=== PATIENT | female | born 1985 | race Caucasian/White ===

== ENCOUNTER 2016-10-28 20:23 | Emergency (ER) | payer OTHER ==
[2016-10-28] MEDS ORDERED: KETOROLAC 60 MG/2 ML VIAL IM STA (21:31)
[2016-10-28] MEDS ORDERED: LORazepam 0.5 MG TABLET PO STA (22:07)
[2016-10-28] MEDS ORDERED: LORazepam 0.5 MG TABLET ONE (22:09)
[2016-10-28 22:32] VITALS: BP 114/80
[2016-10-28] MEDS ORDERED: METHOCARBAMOL 500 MG TABLET PO STA (23:15)
[2016-10-28] MEDS ORDERED: HYDROcod/ACETAM 5/325 MG TABLET PO STA (23:16)
--- NOTE | 2016-10-28 23:18 | ED Physician Documentation ---
PD HPI HEADACHE - Stated complaint Stated Complaint: GARCES - Chief complaint Chief Complaint: General - History obtained from History obtained from: Patient - History of Present Illness Timing - onset: How many days ago (4) Timing - details: Waxing and waning Worst headache ever?: Worst headache ever? (no) Location: Back Quality: Other ("Shooting") Associated symptoms: Vomiting. No: Fever, Nausea Worsened by: Moving Similar symptoms before: Treatment (She reports a history of migraine headaches but states that this is not a migraine. She is been on various medications for headaches in the past, and most recently was treated with Botox injection. The last time she had a similar headache was about one month ago.) - Treatment prior to arrival Treatment prior to arrival: She has taken ibuprofen, without relief. - Additional information Additional information: The patient is a 31-year-old female who presents with occipital headache that has been waxing and waning for the past 4 days. She describes it as a " shooting headache" that started after performing stretches. The pain is worse with movement of her neck. She denies associated fever, nausea or vomiting, photosensitivity, numbness or weakness. She does have a history of migraine headaches, but states this is not a migraine headache. She has taken ibuprofen without relief. The last time she had a headache of this severity was about one month ago. Review of Systems Constitutional: denies: Fever Eyes: denies: Photophobia Ears: denies: Tinnitus/ringing Nose: denies: Congestion Throat: denies: Sore throat Cardiac: denies: Chest pain / pressure Respiratory: denies: Dyspnea, Cough GI: denies: Abdominal Pain, Nausea, Vomiting : denies: Dysuria Skin: denies: Rash Musculoskeletal: reports: Neck pain. denies: Back pain Neurologic: reports: Headache. 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 - Present Medications Home Medications: Ambulatory Orders Medication Instructions Recorded Confirmed HYDROcod/ACETAM 5/325 [[place] 5/325] 1 - 2 ea PO Q6H PRN #15 tablet 06/03/16 Ondansetron HCl [Zofran] 4 mg PO Q6H PRN #10 tablet 06/03/16 Methocarbamol [Robaxin] 500 mg PO Q6H #20 tablet 10/28/16 traMADol [Ultram] 50 mg PO Q4-6H PRN #20 tablet 10/28/16 - Allergies Allergies/Adverse Reactions: Allergies Allergy/AdvReac Type Severity Reaction Status Date / Time morphine AdvReac Unknown Verified 06/03/16 19:23 Sulfa (Sulfonamide AdvReac Headache Verified 06/03/16 19:23 Antibiotics) - Living Situation Living Situation: reports: With spouse/s.o. - Social History Does the pt smoke?: No Smoking Status: Never smoker Does the pt drink ETOH?: No Does the pt have substance abuse?: No - Immunizations Immunizations are current?: No - POLST Patient has POLST: No PD ED PE NORMAL - Vitals Vital signs reviewed: Yes (initially mildly hypertensive.) - General General: Alert and oriented X 3, Well developed/nourished - HEENT HEENT: Atraumatic, PERRL, EOMI, Ears normal, Pharynx benign - Neck Neck: Supple, no meningeal sign, No bony TTP, No adenopathy, No JVD, Other ( There is tenderness to palpation along the left paracervical/trapezius musculature, with associated muscle spasm.) - Cardiac Cardiac: RRR, No murmur - Respiratory Respiratory: No respiratory distress, Clear bilaterally - Abdomen Abdomen: Soft, Non tender - Back Back: No CVA TTP, No spinal TTP - Derm Derm: No rash - Extremities Extremities: No tenderness to palpate, No edema - Neuro Neuro: Alert and oriented X 3, No motor deficit, No sensory deficit Results - Vitals Vitals: Vital Signs - 24 hr 10/28/16 22:30 Temperature 37.4 C Heart Rate 85 Respiratory 16 Rate Blood Pressure 114/80 O2 Saturation 100 Oxygen O2 Source Room air PD MEDICAL DECISION MAKING - ED course Complexity details: reviewed old records, reviewed results, re-evaluated patient , considered differential, d/w patient, d/w family ED course: The patient's headache is most consistent with muscle tension headache. I doubt migraine headache, and there is no clinical evidence to suggest meningitis , subdural hematoma, or temporal arteritis. Treatment in the emergency department included administration of ketorolac 60 mg IM. This did not change the patient's symptoms. Lorazepam 0.5 mg is administered orally and Robaxin 500 mg was administered orally. The patient continued to have discomfort although slightly improved. She is being discharged with prescriptions for Robaxin and for tramadol, 20 tablets. I discussed with her and her family members the diagnosis, symptomatic treatment and outpatient follow-up, as well as potentially worrisome signs or symptoms that should prompt reevaluation in the emergency department. Departure - Departure Disposition: 01 Home, Self Care Clinical Impression: Tension headache Condition: Stable Instructions: ED Headache Tension Follow-Up: [facility] [Provider Group] Prescriptions: Methocarbamol [Robaxin] 500 mg PO Q6H #20 tablet traMADol [Ultram] 50 mg PO Q4-6H PRN #20 tablet PRN Reason: Pain Comments: Apply icepack to your neck intermittently for the next 3 days. You can use ibuprofen, up to 800 mg 3 times daily for 10 inflammatory effect. You can use Robaxin as prescribed if needed for muscle spasms. You can use Percocet as prescribed if needed for pain. Follow up with your primary physician within one to 2 weeks. Call to schedule an appointment. Return to the emergency department if you develop increasing, neck pain and increasing headache, or otherwise worsening symptoms. Discharge Date/Time: 10/28/16 23:54
[2016-10-28] MEDS ORDERED: HYDROcod/ACET 5/325 Prepack 6 PO ONE (23:32)
[2016-10-28] MEDS ORDERED: METHOCARBAMOL 500 MG TABLET PO ONE (23:32)
[2016-10-28] MEDS ORDERED: HYDROcod/ACET 5/325 Prepack 6 PO STA (23:36)
== END 2016-10-28 23:54 | disposition home or self-care (01) ==
LOC: ED 20:23
DX: G44.209 Tension-type headache, unspecified, not intractable (principal)
CPT/HCPCS: 96372; 99283; A9270

== ENCOUNTER 2016-10-31 18:58 | Emergency (ER) | payer OTHER ==
[2016-10-31] MEDS ORDERED: HYDROcod/ACETAM 5/325 MG TABLET PO STA (20:23)
[2016-10-31] MEDS ORDERED: HYDROcod/ACETAM 5/325 MG TABLET ONE (20:26)
== END 2016-10-31 20:36 | disposition home or self-care (01) ==
DX: M62.838 Other muscle spasm (principal)
CPT/HCPCS: 99283; A9270

== ENCOUNTER 2017-06-07 11:49 | Emergency (ER) | payer OTHER ==
[2017-06-07] MEDS ORDERED: SODIUM CHLORIDE 0.9% 2,000 ML IV ONE (13:01)
--- NOTE | 2017-06-07 13:07 | ED Physician Documentation ---
History of Present Illness - Stated complaint Stated Complaint: SOA - Chief complaint Chief Complaint: Resp - History obtained from History obtained from: Patient - History of Present Illness Timing: How many days ago (6) - Additonal information Additional information: The patient is a 32-year-old female who presents with generalized weakness and shortness of breath that has been progressing over the past 6 days. She gets diaphoretic when standing. She has had diarrhea and reports nausea with dry heaves. She denies abdominal pain, fever, cough, or dysuria. She was seen by her primary physician 2 days ago, and it was thought that her symptoms were anxiety related. The patient reports significant stress, having left her 6 days ago, prior to the onset of her symptoms. She denies history of similar symptoms in the past. Review of Systems Constitutional: reports: Fatigue, Sweats. denies: Fever Ears: denies: Tinnitus/ringing Nose: denies: Congestion Throat: denies: Sore throat Cardiac: reports: Palpitations. denies: Chest pain / pressure Respiratory: reports: Dyspnea. denies: Cough GI: reports: Nausea. denies: Abdominal Pain, Vomiting : reports: LMP (3 weeks ago.). denies: Dysuria Skin: denies: Rash Musculoskeletal: denies: Back pain, Extremity pain Neurologic: reports: Generalized weakness. 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 - Present Medications Home Medications: Ambulatory Orders Medication Instructions Recorded Confirmed Potassium Chloride [K-Dur] 20 meq PO 0800 #10 tablet 06/07/17 Promethazine [Phenergan] 25 - 50 mg PO Q6H PRN #10 tab 06/07/17 - Allergies Allergies/Adverse Reactions: Allergies Allergy/AdvReac Type Severity Reaction Status Date / Time ciprofloxacin [From Cipro] AdvReac Headache Verified 06/07/17 12:14 morphine AdvReac Unknown Verified 06/07/17 12:14 Sulfa (Sulfonamide AdvReac Headache Verified 06/07/17 12:14 Antibiotics) - Social History Does the pt smoke?: No Smoking Status: Never smoker Does the pt drink ETOH?: No Does the pt have substance abuse?: No - Immunizations Immunizations are current?: No - POLST Patient has POLST: No PD ED PE NORMAL - Vitals Vital signs reviewed: Yes (tachycardic) - General General: Alert and oriented X 3, Well developed/nourished - HEENT HEENT: Atraumatic, EOMI, Moist mucous membranes, Pharynx benign - Neck Neck: Supple, no meningeal sign, No JVD - Cardiac Cardiac: No murmur, Other (rapid rate, regular rhyt) - Respiratory Respiratory: No respiratory distress, Clear bilaterally - Abdomen Abdomen: Soft, Non tender, No organomegaly - Back Back: No CVA TTP - Derm Derm: No rash - Extremities Extremities: No edema, No calf tenderness / cord - Neuro Neuro: Alert and oriented X 3, No motor deficit, No sensory deficit Results - Vitals Vitals: Oxygen O2 Source Room air - EKG (time done) 11:57 Rate: Rate (enter#) (122) Rhythm: Sinus tachycardia [place]: Normal Intervals: Normal VT QRS: Normal Ischemia: Normal ST segments Computer interpretation: Agree with computer - Labs Labs: Laboratory Tests 06/07/17 06/07/17 06/07/17 13:11 13:21 13:21 WBC 7.6 RBC 5.38 Hgb 13.9 Hct 42.0 MCV 78.2 L MCH 25.8 L MCHC 33.0 RDW 16.6 H Plt Count 236 MPV 9.4 Neut # 5.2 Lymph # 1.3 L [place] # 0.8 Eos # 0.1 Baso # 0.2 H Absolute Nucleated RBC 0.00 Nucleated RBC % 0.0 Manual Slide Review Indicated WBC Morphology NORMAL APPEARANCE Platelet Estimate NORMAL (130-450,000) Platelet Morphology 2+ LARGE PLATELETS RBC Morph Micro Appear 1+ POIKILOCYTOSIS Sodium 134 L Potassium 2.9 L Chloride 103 Carbon Dioxide 18 L Anion Gap 13.0 BUN < 5 L Creatinine 0.7 Estimated GFR (MDRD) 97 Glucose 96 Calcium 9.8 Total Bilirubin 1.4 H AST 33 ALT 19 Alkaline Phosphatase 48 Total Protein 8.8 H Albumin 5.4 Globulin 3.4 Albumin/Globulin Ratio 1.6 Lipase 27 TSH Urine Color YELLOW Urine Clarity CLEAR Urine pH 6.0 Ur Specific [place] <=1.005 Urine Protein NEGATIVE Urine Glucose (UA) NEGATIVE Urine Ketones 15 H Urine Occult Blood TRACE-LYSE Urine Nitrite NEGATIVE Urine Bilirubin NEGATIVE Urine Urobilinogen 0.2 (NORMAL) Ur Leukocyte Esterase NEGATIVE Ur Microscopic Review NOT INDICATED Urine Culture Comments NOT INDICATED Urine HCG, Qual NEGATIVE 06/07/17 13:21 WBC RBC Hgb Hct MCV MCH MCHC RDW Plt Count MPV Neut # Lymph # [place] # Eos # Baso # Absolute Nucleated RBC Nucleated RBC % Manual Slide Review WBC Morphology Platelet Estimate Platelet Morphology RBC Morph Micro Appear Sodium Potassium Chloride Carbon Dioxide Anion Gap BUN Creatinine Estimated GFR (MDRD) Glucose Calcium Total Bilirubin AST ALT Alkaline Phosphatase Total Protein Albumin Globulin Albumin/Globulin Ratio Lipase TSH 1.28 Urine Color Urine Clarity Urine pH Ur Specific [place] Urine Protein Urine Glucose (UA) Urine Ketones Urine Occult Blood Urine Nitrite Urine Bilirubin Urine Urobilinogen Ur Leukocyte Esterase Ur Microscopic Review Urine Culture Comments Urine HCG, Qual PD MEDICAL DECISION MAKING - ED course Complexity details: reviewed results, re-evaluated patient, considered differential, d/w patient ED course: The patient's presentation is significant for abdominal distress with vomiting and dehydration. Chemistry panel also reveals mild hypokalemia, with a potassium of 2.9. I believe her symptoms are indeed stress related. Repeated examinations reveal a benign abdomen. CBC is unremarkable, as is urinalysis. TSH was checked and was normal. Treatment in the emergency department included administration of normal saline 1 L IV, Phenergan 12.5 mg IV, potassium 10 mEq IV, and 25 mEq orally. Following the above treatment the patient felt subjectively much improved, and demonstrates ability to drink fluids without recurrent vomiting. She is being discharged with prescriptions for Phenergan and for short course of supplemental potassium. I discussed with her the results of her workup, symptomatic treatment and outpatient follow-up, as well as potentially worrisome signs or symptoms that should prompt reevaluation in the emergency department. Departure - Departure Disposition: 01 Home, Self Care Clinical Impression: Dehydration, Hypokalemia Diarrhea Qualifiers: Diarrhea type: unspecified type Qualified Code(s): R19.7 - Diarrhea, unspecified Condition: Stable Instructions: ED Dehydration, ED Diarrhea Viral Follow-Up: [facility] [Provider Group] Prescriptions: Potassium Chloride [K-Dur] 20 meq PO 0800 #10 tablet Promethazine [Phenergan] 25 - 50 mg PO Q6H PRN #10 tab PRN Reason: Nausea / Vomiting Comments: Drink plenty of fluids. You can use Phenergan as prescribed if needed for nausea. Take potassium supplement daily as prescribed. Follow up with your primary physician within one week. Call to schedule an appointment. Return to the emergency department if you develop increasing abdominal pain, persistent vomiting, recurrent dehydration, or otherwise worsening symptoms. Discharge Date/Time: 06/07/17 16:10
[2017-06-07 13:34] LABS: BASOPHILS # (AUTO) 0.2 10^3/uL (0.0-0.1); BASOPHILS % (AUTO) 2.7 %; EOSINOPHILS # (AUTO) 0.1 10^3/uL (0.0-0.7); EOSINOPHILS % (AUTO) 1.9 %; HGB - HEMOGLOBIN 13.9 g/dL (12.0-16.0); LYMPHOCYTES # (AUTO) 1.3 10^3/uL (1.5-3.5); LYMPHOCYTES % (AUTO) 16.9 %; MEAN CORPUSCULAR HEMOGLOBIN 25.8 pg (27.0-31.0); MEAN CORPUSCULAR VOLUME 78.2 fL (81.0-99.0); MEAN PLATELET VOLUME 9.4 fL (7.9-10.8); MONOCYTES # (AUTO) 0.8 10^3/uL (0.0-1.0); MONOCYTES % (AUTO) 10.9 %; NEUTROPHILS # (AUTO) 5.2 10^3/uL (1.5-6.6); NEUTROPHILS % (AUTO) 67.6 %; RED BLOOD COUNT 5.38 10^6/uL (4.20-5.40); RED CELL DISTRIBUTION WIDTH 16.6 % (12.0-15.0); UNCORRECTED WHITE BLOOD COUNT 7.6 x10^3/uL; WHITE BLOOD COUNT 7.6 x10^3/uL (4.8-10.8)
[2017-06-07 13:51] LABS: ALBUMIN/GLOBULIN RATIO 1.6 (1.0-2.2); BILIRUBIN,TOTAL 1.4 mg/dL (0.2-1.0); BUN - BLOOD UREA NITROGEN < 5 mg/dL (6-20); CALCIUM 9.8 mg/dL (8.5-10.3); CARBON DIOXIDE - CO2 18 mmol/L (21-32); CHLORIDE 103 mmol/L (101-111); CREATININE 0.7 mg/dL (0.4-1.0); GFR - MDRD 97 (>89); GLUCOSE 96 mg/dL (70-100); LIPASE 27 U/L (22-51); POTASSIUM 2.9 mmol/L (3.5-5.0); SODIUM 134 mmol/L (135-145); TOTAL PROTEIN 8.8 g/dL (6.7-8.2)
[2017-06-07 14:05] LABS: BILIRUBIN,URINE NEGATIVE (NEGATIVE)
[2017-06-07] MEDS ORDERED: POTASSIUM CHLOR 10 MEQ/100 ML 10 MEQ/100 ML BAG IV ONE ×2 (14:07→14:27)
[2017-06-07] MEDS ORDERED: POTASSIUM BICARB 25 MEQ TABLET PO STA (14:08)
[2017-06-07 14:09] LABS: HCG UR QUAL NEGATIVE; UA CHARGE (STRIP ONLY) YES; UR CULTURE IF IND NOT INDICATED
[2017-06-07] MEDS ORDERED: POTASSIUM BICARB 25 MEQ TABLET PO ONE (14:27)
[2017-06-07 14:31] LABS: PLATELET ESTIMATE, MANUAL NORMAL (130-450,000) (NORMAL); PLATELET MORPHOLOGY 2+ LARGE PLATELETS (NORMAL)
[2017-06-07 14:33] LABS: WBC MORPHOLOGY (MULTIPLE) NORMAL APPEARANCE (NORMAL)
[2017-06-07 15:18] VITALS: BP 107/74
== END 2017-06-07 16:10 | disposition home or self-care (01) ==
LOC: ED 11:49
DX: E86.0 Dehydration (principal); E87.6 Hypokalemia; R19.7 Diarrhea, unspecified; I48.92 Unspecified atrial flutter; R94.31 Abnormal electrocardiogram [ECG] [EKG]
CPT/HCPCS: 36415; 80053; 81003; 81025; 83690; 84443; 85025; 93005; 96361; 96365; 99283; 99284; A9270; 81001; 87086

== ENCOUNTER 2017-06-11 08:38 | Emergency (ER) | payer OTHER ==
[2017-06-11] MEDS ORDERED: SODIUM CHLORIDE 0.9% 1,000 ML IV ONE (10:30)
--- NOTE | 2017-06-11 10:35 | ED Physician Documentation ---
History of Present Illness - Stated complaint Stated Complaint: RAPID HEART BEAT - Chief complaint Chief Complaint: Cardiac - History obtained from History obtained from: Patient - History of Present Illness Timing: How many weeks ago (3) - Additonal information Additional information: 32-year-old female who is going through divorce with her of 13 years has developed increased diarrhea and symptoms of dehydration and weakness. She was seen in the emergency department last week and hydrated and given potassium. She has a history of irritable bowel syndrome and frequently has diarrhea. She states that she has both liquid and solid stool. Review of Systems Constitutional: reports: Sweats. denies: Fever, Chills Eyes: denies: Decreased vision Ears: denies: Ear pain Nose: denies: Congestion Throat: denies: Oral lesions / sores, Sore throat Cardiac: denies: Chest pain / pressure, Palpitations Respiratory: denies: Dyspnea, Cough GI: reports: Diarrhea. denies: Abdominal Pain, Nausea, Vomiting : denies: Dysuria, Frequency Skin: denies: Rash Musculoskeletal: denies: Neck pain, Back pain, Extremity pain Neurologic: reports: Generalized weakness. 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 - Present Medications Home Medications: Ambulatory Orders Medication Instructions Recorded Confirmed Potassium Chloride [K-Dur] 20 meq PO 0800 #10 tablet 06/07/17 06/11/17 - Allergies Allergies/Adverse Reactions: Allergies Allergy/AdvReac Type Severity Reaction Status Date / Time ciprofloxacin [From Cipro] AdvReac Headache Verified 06/11/17 09:12 morphine AdvReac Unknown Verified 06/11/17 09:12 Sulfa (Sulfonamide AdvReac Headache Verified 06/11/17 09:12 Antibiotics) - Social History Does the pt smoke?: No Smoking Status: Never smoker Does the pt drink ETOH?: No Does the pt have substance abuse?: No - Immunizations Immunizations are current?: No - POLST Patient has POLST: No PD ED PE NORMAL - Vitals Vital signs reviewed: Yes - General General: Alert and oriented X 3, Well developed/nourished, Other (The patient is in tears and has a flattened affect.) - HEENT HEENT: Atraumatic, PERRL, EOMI, Ears normal, Moist mucous membranes, Pharynx benign, Dentition benign - Neck Neck: Supple, no meningeal sign, No bony TTP, No JVD - Cardiac Cardiac: No murmur, Other (Tachycardia to 110) - Respiratory Respiratory: No respiratory distress, Clear bilaterally - Abdomen Abdomen: Soft, Non tender - Back Back: No CVA TTP, No spinal TTP - Derm Derm: Normal color, Warm and dry, No rash - Extremities Extremities: No deformity, No edema - Neuro Neuro: No motor deficit, No sensory deficit - Psych Psych: Normal mood, Normal affect Results - Vitals Vitals: Vital Signs - 24 hr 06/11/17 06/11/17 06/11/17 09:04 10:54 12:21 Heart Rate 87 75 78 Respiratory 11 L 14 16 Rate Blood Pressure 120/77 121/72 O2 Saturation 100 100 100 Oxygen O2 Source Room air - EKG (time done) 0846 Rate: Rate (enter#) (101) Rhythm: Sinus tachycardia Compare to prior EKG: Changed from prior EKG ([facility] 06-07-17 rate has decreased) Computer interpretation: Agree with computer - Labs Labs: Laboratory Tests 06/11/17 06/11/17 06/11/17 10:50 10:50 10:55 WBC 6.0 RBC 4.61 Hgb 11.9 L Hct 36.4 L MCV 78.9 L MCH 25.7 L MCHC 32.6 RDW 17.1 H Plt Count 195 MPV 8.7 Neut # 4.2 Lymph # 1.1 L [place] # 0.4 Eos # 0.1 Baso # 0.1 Absolute Nucleated RBC 0.00 Nucleated RBC % 0.0 Manual Slide Review Indicated Platelet Estimate NORMAL (130-450,000) Platelet Morphology 1+ LARGE PLATELETS RBC Morph Micro Appear NORMAL APPEARANCE Sodium 137 Potassium 3.0 L Chloride 103 Carbon Dioxide 21 Anion Gap 13.0 BUN < 5 L Creatinine 0.6 Estimated GFR (MDRD) 116 Glucose 78 Calcium 9.2 Total Bilirubin 1.1 H AST 25 ALT 18 Alkaline Phosphatase 42 Total Protein 7.6 Albumin 4.8 Globulin 2.8 Albumin/Globulin Ratio 1.7 Lipase 22 Urine Color YELLOW Urine Clarity CLEAR Urine pH 6.0 Ur Specific [place] 1.010 Urine Protein NEGATIVE Urine Glucose (UA) NEGATIVE Urine Ketones >=80 H Urine Occult Blood NEGATIVE Urine Nitrite NEGATIVE Urine Bilirubin NEGATIVE Urine Urobilinogen 0.2 (NORMAL) Ur Leukocyte Esterase NEGATIVE Ur Microscopic Review NOT INDICATED Urine Culture Comments NOT INDICATED Urine HCG, Qual NEGATIVE Procedures - IVC sono (time) 1030 Bedside IVC sono: IVC measures (cm) (0.88), IVC collapsed c insp (cm) (complete) , Dehydration PD MEDICAL DECISION MAKING - ED course Complexity details: reviewed old records, reviewed results, re-evaluated patient , considered differential, d/w patient ED course: 32-year-old female with marked stress and anxiety has again developed dehydration and weakness and is found to have hypokalemia. Here in the emergency department she is administered IV saline and potassium. She does have significant stress and has an appointment to see a counselor tomorrow. I recommended she use some Imodium for her diarrhea. Departure - Departure Disposition: Home, Self Care Clinical Impression: Dehydration, Hypokalemia, Stress reaction Condition: Stable Instructions: ED Stress React, ED Dehydration, Potassium Supplements Follow-Up: [facility] [Provider Group] Comments: Today your again dehydrated to have low potassium. There is also ketones in the urine suggesting you are not eating. Follow-up with the counselor as planned tomorrow. Hydrate well today and take your potassium supplement. I recommend Imodium for your chronic diarrhea. Discharge Date/Time: 06/11/17 12:25
[2017-06-11 11:02] LABS: BILIRUBIN,URINE NEGATIVE (NEGATIVE)
[2017-06-11 11:03] LABS: BASOPHILS # (AUTO) 0.1 10^3/uL (0.0-0.1); BASOPHILS % (AUTO) 1.4 %; EOSINOPHILS # (AUTO) 0.1 10^3/uL (0.0-0.7); EOSINOPHILS % (AUTO) 2.3 %; HCT - HEMATOCRIT 36.4 % (37.0-47.0); HGB - HEMOGLOBIN 11.9 g/dL (12.0-16.0); LYMPHOCYTES # (AUTO) 1.1 10^3/uL (1.5-3.5); LYMPHOCYTES % (AUTO) 18.8 %; MEAN CORPUSCULAR HEMOGLOBIN 25.7 pg (27.0-31.0); MEAN CORPUSCULAR HGB CONC 32.6 g/dL (32.0-36.0); MEAN CORPUSCULAR VOLUME 78.9 fL (81.0-99.0); MEAN PLATELET VOLUME 8.7 fL (7.9-10.8); MONOCYTES # (AUTO) 0.4 10^3/uL (0.0-1.0); MONOCYTES % (AUTO) 7.3 %; NEUTROPHILS # (AUTO) 4.2 10^3/uL (1.5-6.6); NEUTROPHILS % (AUTO) 70.2 %; RED BLOOD COUNT 4.61 10^6/uL (4.20-5.40); RED CELL DISTRIBUTION WIDTH 17.1 % (12.0-15.0)
[2017-06-11 11:07] LABS: HCG UR QUAL NEGATIVE; UA CHARGE (STRIP ONLY) YES; UR CULTURE IF IND NOT INDICATED
[2017-06-11 11:14] LABS: ALBUMIN/GLOBULIN RATIO 1.7 (1.0-2.2); BILIRUBIN,TOTAL 1.1 mg/dL (0.2-1.0); BUN - BLOOD UREA NITROGEN < 5 mg/dL (6-20); CALCIUM 9.2 mg/dL (8.5-10.3); CARBON DIOXIDE - CO2 21 mmol/L (21-32); CHLORIDE 103 mmol/L (101-111); CREATININE 0.6 mg/dL (0.4-1.0); GFR - MDRD 116 (>89); GLUCOSE 78 mg/dL (70-100); LIPASE 22 U/L (22-51); SODIUM 137 mmol/L (135-145); TOTAL PROTEIN 7.6 g/dL (6.7-8.2)
[2017-06-11 11:25] LABS: PLATELET ESTIMATE, MANUAL NORMAL (130-450,000) (NORMAL)
[2017-06-11] MEDS ORDERED: POTASSIUM BICARB 25 MEQ TABLET PO STA (11:31)
[2017-06-11] MEDS ORDERED: POTASSIUM BICARB 25 MEQ TABLET PO ONE (11:39)
[2017-06-11 12:22] VITALS: BP 121/72
== END 2017-06-11 12:25 | disposition home or self-care (01) ==
LOC: ED 08:38
DX: E86.0 Dehydration (principal); E87.6 Hypokalemia; F43.9 Reaction to severe stress, unspecified; R00.0 Tachycardia, unspecified
CPT/HCPCS: 36415; 80053; 81003; 81025; 83690; 85025; 96360; 99283; 99284; A9270; 81001; 87086

== ENCOUNTER 2017-06-26 11:29 | Outpatient (CLI) | payer OTHER | END 2017-06-26 11:30 | disposition critical access hospital (66) | LOC: EMS 11:29 | PROVIDERS: ATTEND Surgery | DX: T58.2X2A Toxic effect of carbon monoxide from incomplete combustion of other domestic fuels, intentional self-harm, initial encounter (principal) | CPT/HCPCS: A0425; A0427 ==

== ENCOUNTER 2017-06-26 11:47 | Emergency (ER) | payer OTHER ==
[2017-06-26 12:10] LABS: BASOPHILS # (AUTO) 0.1 10^3/uL (0.0-0.1); BASOPHILS % (AUTO) 2.5 %; EOSINOPHILS # (AUTO) 0.1 10^3/uL (0.0-0.7); EOSINOPHILS % (AUTO) 1.9 %; HCT - HEMATOCRIT 38.7 % (37.0-47.0); HGB - HEMOGLOBIN 12.7 g/dL (12.0-16.0); LYMPHOCYTES # (AUTO) 1.3 10^3/uL (1.5-3.5); LYMPHOCYTES % (AUTO) 26.2 %; MEAN CORPUSCULAR HGB CONC 32.8 g/dL (32.0-36.0); MEAN CORPUSCULAR VOLUME 79.5 fL (81.0-99.0); METHEMOGLOBIN VENOUS 0.3 % (0-1.5); MONOCYTES # (AUTO) 0.4 10^3/uL (0.0-1.0); MONOCYTES % (AUTO) 8.2 %; NEUTROPHILS # (AUTO) 3.1 10^3/uL (1.5-6.6); NEUTROPHILS % (AUTO) 61.2 %; NUCLEATED RED BLOOD CELLS AUTO 0.1 /100WBC; RED BLOOD COUNT 4.87 10^6/uL (4.20-5.40); RED CELL DISTRIBUTION WIDTH 17.8 % (12.0-15.0)
[2017-06-26 12:22] LABS: BILIRUBIN,URINE NEGATIVE (NEGATIVE); PH,URINE 6.5 PH (5.0-7.5)
[2017-06-26 12:23] LABS: UA CHARGE (STRIP ONLY) YES; UR CULTURE IF IND NOT INDICATED
[2017-06-26 12:23] LABS: ALBUMIN/GLOBULIN RATIO 1.7 (1.0-2.2); BILIRUBIN,TOTAL 0.7 mg/dL (0.2-1.0); BUN - BLOOD UREA NITROGEN 6 mg/dL (6-20); CALCIUM 9.9 mg/dL (8.5-10.3); CARBON DIOXIDE - CO2 19 mmol/L (21-32); CHLORIDE 103 mmol/L (101-111); CREATININE 0.7 mg/dL (0.4-1.0); GFR - MDRD 97 (>89); GLUCOSE 101 mg/dL (70-100); LIPASE 30 U/L (22-51); POTASSIUM 3.6 mmol/L (3.5-5.0); SALICYLATE < 6.0 mg/dL; SODIUM 139 mmol/L (135-145); TOTAL PROTEIN 7.8 g/dL (6.7-8.2)
[2017-06-26 12:26] LABS: ACETAMINOPHEN < 10 ug/mL (10-30)
[2017-06-26 12:39] LABS: PLATELET MORPHOLOGY 1+ GIANT PLATELETS (NORMAL)
[2017-06-26 12:40] LABS: PLATELET ESTIMATE, MANUAL NORMAL (130-450,000) (NORMAL); WBC MORPHOLOGY (MULTIPLE) 1+ VARIANT LYMPHS (NORMAL)
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
[2017-06-26 14:01] LABS: METHEMOGLOBIN VENOUS 0.1 % (0-1.5)
[2017-06-26] MEDS ORDERED: HYDROcod/ACETAM 5/325 MG TABLET ONE (19:03)
[2017-06-26] MEDS ORDERED: IBUPROFEN 400 MG TABLET PO STA (21:29)
[2017-06-26] MEDS ORDERED: IBUPROFEN 400 MG TABLET PO ONE (21:38)
--- NOTE | 2017-06-27 01:06 | ED Physician Documentation ---
ED Addendum - Addendum Addendum: 06/27/17 01:05 Patient placed on Invol hold by [facility]. Rika DOTYP accepts in transfer. Patient cooperative during my shift.
[2017-06-27 03:41] VITALS: BP 132/88
== END 2017-06-27 03:49 ==
LOC: EDUNIT# → ED 11:47
DX: T59.7X2A Toxic effect of carbon dioxide, intentional self-harm, initial encounter (principal); Y92.019 Unspecified place in single-family (private) house as the place of occurrence of the external cause
CPT/HCPCS: 36415; 80053; 80306; 80307; 80320; 80329; 81003; 82375; 83690; 84443; 84703; 85025; 93005; 99284; 99285; A9270; 81001; 87086

== ENCOUNTER 2017-11-30 18:49 | Emergency (ER) | payer OTHER ==
--- NOTE | 2017-11-30 20:12 | ED Physician Documentation ---
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 - Present Medications Home Medications: Ambulatory Orders Medication Instructions Recorded Confirmed Ibuprofen [Motrin] 800 mg PO TID 06/17/17 06/26/17 - Allergies Allergies/Adverse Reactions: Allergies Allergy/AdvReac Type Severity Reaction Status Date / Time ciprofloxacin [From Cipro] AdvReac Headache Verified 11/30/17 18:58 morphine AdvReac Unknown Verified 11/30/17 18:58 Sulfa (Sulfonamide AdvReac Headache Verified 11/30/17 18:58 Antibiotics) - Social History Does the pt smoke?: No Smoking Status: Never smoker Does the pt drink ETOH?: No Does the pt have substance abuse?: No - Immunizations Immunizations are current?: No - POLST Patient has POLST: No Results - Vitals Vitals: Vital Signs - 24 hr 11/30/17 18:55 Temperature 37.6 C H Heart Rate 104 H Respiratory 16 Rate Blood Pressure 134/93 H O2 Saturation 100 Oxygen O2 Source Room air
--- NOTE | 2017-11-30 20:15 | ED Physician Documentation ---
PD HPI ABD PAIN - Stated complaint Stated Complaint: BACK PX - Chief complaint Chief Complaint: Abd Pain - History obtained from History obtained from: Patient - History of Present Illness Timing - onset: How many hours ago (2) Timing - duration: Hours Timing - details: Abrupt onset, Constant, Waxing and waning Pain level now: 8 Quality: Cramping, Pain Location: Other (across lower abdomen and to rectum) Improved by: Other (no ameliorating factors) Worsened by: Moving, Palpation Associated symptoms: Nausea. No: Fever, Vomiting, Diarrhea, Constipation Similar symptoms before: Diagnosis (similar to episodes she last had approximately 2 years ago, diagnosed with IBS/"spastic colon" (per patient); w/ u at that time included blood tests and lower endoscopy/colonoscopy) Recently seen: Not recently seen Review of Systems Constitutional: denies: Fever, Chills, Sweats Cardiac: reports: Reviewed and negative Respiratory: reports: Reviewed and negative GI: reports: Abdominal Pain, Nausea. 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 - Present Medications Home Medications: Ambulatory Orders Medication Instructions Recorded Confirmed Ibuprofen [Motrin] 800 mg PO TID 06/17/17 06/26/17 HYDROcod/ACETAM 5/325 [[place] 5/325] 1 - 2 ea PO Q6H PRN #15 tablet 11/30/17 - Allergies Allergies/Adverse Reactions: Allergies Allergy/AdvReac Type Severity Reaction Status Date / Time ciprofloxacin [From Cipro] AdvReac Headache Verified 11/30/17 18:58 morphine AdvReac Unknown Verified 11/30/17 18:58 Sulfa (Sulfonamide AdvReac Headache Verified 11/30/17 18:58 Antibiotics) - Social History Does the pt smoke?: No Smoking Status: Never smoker Does the pt drink ETOH?: No Does the pt have substance abuse?: No - Immunizations Immunizations are current?: No - POLST Patient has POLST: No PD ED PE NORMAL - Vitals Vital signs reviewed: Yes - General General: Alert and oriented X 3, Well developed/nourished, Other (appears uncomfortable) - HEENT HEENT: Moist mucous membranes - Cardiac Cardiac: RRR, No murmur - Respiratory Respiratory: No respiratory distress, Clear bilaterally - Abdomen Abdomen: Normal bowel sounds, Soft, Non distended - Back Back: No CVA TTP - Derm Derm: Normal color, Warm and dry PD ED PE EXPANDED - Abdomen Abdomen: Tender to palpation, Periumbilical, RLQ. No: Rebound, Guarding Results - Vitals Vitals: Vital Signs - 24 hr 11/30/17 11/30/17 11/30/17 18:55 22:41 23:37 Temperature 37.6 C H 36.8 C 36.4 C L Heart Rate 104 H 71 86 Respiratory 16 16 16 Rate Blood Pressure 134/93 H 115/78 129/84 H O2 Saturation 100 98 100 Oxygen O2 Source Room air - Labs Labs: Laboratory Tests 11/30/17 11/30/17 11/30/17 20:00 20:00 21:02 WBC 10.3 RBC 4.42 Hgb 11.2 L Hct 34.6 L MCV 78.3 L MCH 25.4 L MCHC 32.5 RDW 17.0 H Plt Count 213 MPV 8.6 Neut # 7.4 H Lymph # 1.8 Bland # 0.9 Eos # 0.1 Baso # 0.1 Absolute Nucleated RBC 0.01 Nucleated RBC % 0.1 Sodium Potassium Chloride Carbon Dioxide Anion Gap BUN Creatinine Estimated GFR (MDRD) Glucose Calcium Total Bilirubin AST ALT Alkaline Phosphatase Total Protein Albumin Globulin Albumin/Globulin Ratio Lipase Urine Color STRAW Urine Clarity CLEAR Urine pH 5.5 Ur Specific [place] <=1.005 <=1.005 Urine Protein NEGATIVE Urine Glucose (UA) NEGATIVE Urine Ketones NEGATIVE Urine Occult Blood NEGATIVE Urine Nitrite NEGATIVE Urine Bilirubin NEGATIVE Urine Urobilinogen 0.2 (NORMAL) Ur Leukocyte Esterase NEGATIVE Ur Microscopic Review NOT INDICATED Urine Culture Comments NOT INDICATED Urine HCG, Qual NEGATIVE 11/30/17 21:02 WBC RBC Hgb Hct MCV MCH MCHC RDW Plt Count MPV Neut # Lymph # B[place] # Eos # Baso # Absolute Nucleated RBC Nucleated RBC % Sodium 138 Potassium 3.7 Chloride 106 Carbon Dioxide 25 Anion Gap 7.0 BUN 6 Creatinine 0.4 Estimated GFR (MDRD) 185 Glucose 93 Calcium 9.0 Total Bilirubin 0.4 AST 20 ALT 15 Alkaline Phosphatase 47 Total Protein 7.2 Albumin 4.3 Globulin 2.9 Albumin/Globulin Ratio 1.5 Lipase 30 Urine Color Urine Clarity Urine pH Ur Specific [place] Urine Protein Urine Glucose (UA) Urine Ketones Urine Occult Blood Urine Nitrite Urine Bilirubin Urine Urobilinogen Ur Leukocyte Esterase Ur Microscopic Review Urine Culture Comments Urine HCG, Qual - Rads (name of study) CT A/P Radiology: Prelim report reviewed, See rad report PD MEDICAL DECISION MAKING - ED course Complexity details: reviewed results, re-evaluated patient, considered differential, d/w patient ED course: Patient says she has had relief with bentyl in the past with these symptoms, but she did not have any relief with bentyl tonight in ED. 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 No findings that would indicate further ED w/u or admission to hospital. Departure - Departure Disposition: 01 Home, Self Care Clinical Impression: Cyst of ovary, Cholelithiasis Condition: Good Instructions: ED Cyst Ovarian Follow-Up: VELIA Gutiérrez [Provider Group] Prescriptions: HYDROcod/ACETAM 5/325 [[place] 5/325] 1 - 2 ea PO Q6H PRN #15 tablet PRN Reason: Pain Discharge Date/Time: 11/30/17 23:56
[2017-11-30 20:22] LABS: BILIRUBIN,URINE NEGATIVE (NEGATIVE); GLUCOSE, URINE (UA) NEGATIVE (NEGATIVE); KETONES,URINE (UA) NEGATIVE (NEGATIVE); LEUKOCYTE ESTERASE, URINE NEGATIVE (NEGATIVE); NITRITE,URINE NEGATIVE (NEGATIVE); OCCULT BLOOD,URINE NEGATIVE (NEGATIVE); PH,URINE 5.5 PH (5.0-7.5); PROTEIN,URINE NEGATIVE (NEGATIVE); UROBILINOGEN,URINE 0.2 (NORMAL) E.U./dL (NORMAL)
[2017-11-30] MEDS ORDERED: DICYCLOMINE 10 MG CAPSULE PO STA (20:29)
[2017-11-30 20:42] LABS: CLARITY,URINE CLEAR (CLEAR)
[2017-11-30 20:55] LABS: HCG UR QUAL NEGATIVE
[2017-11-30 21:08] LABS: BASOPHILS # (AUTO) 0.1 10^3/uL (0.0-0.1); BASOPHILS % (AUTO) 0.7 %; EOSINOPHILS # (AUTO) 0.1 10^3/uL (0.0-0.7); HGB - HEMOGLOBIN 11.2 g/dL (12.0-16.0); LYMPHOCYTES # (AUTO) 1.8 10^3/uL (1.5-3.5); LYMPHOCYTES % (AUTO) 17.8 %; MEAN CORPUSCULAR HEMOGLOBIN 25.4 pg (27.0-31.0); MEAN CORPUSCULAR HGB CONC 32.5 g/dL (32.0-36.0); MEAN CORPUSCULAR VOLUME 78.3 fL (81.0-99.0); MEAN PLATELET VOLUME 8.6 fL (7.9-10.8); MONOCYTES # (AUTO) 0.9 10^3/uL (0.0-1.0); MONOCYTES % (AUTO) 8.4 %; NEUTROPHILS # (AUTO) 7.4 10^3/uL (1.5-6.6); NEUTROPHILS % (AUTO) 72.1 %; PLT - PLATELET COUNT 213 10^3/uL (130-450); RED BLOOD COUNT 4.42 10^6/uL (4.20-5.40); WHITE BLOOD COUNT 10.3 x10^3/uL (4.8-10.8)
[2017-11-30 21:21] LABS: ALBUMIN 4.3 g/dL (3.2-5.5); ALBUMIN/GLOBULIN RATIO 1.5 (1.0-2.2); BILIRUBIN,TOTAL 0.4 mg/dL (0.2-1.0); CREATININE 0.4 mg/dL (0.4-1.0); TOTAL PROTEIN 7.2 g/dL (6.7-8.2)
[2017-11-30] MEDS ORDERED: KETOROLAC 60 MG/2 ML VIAL IVP STA (21:55)
[2017-11-30] MEDS ORDERED: IOPAMIDOL-300 100 ML VIAL ONE (22:06)
[2017-11-30] MEDS ORDERED: IOPAMIDOL-300 100 ML VIAL IVP ONE (22:40)
--- NOTE | 2017-11-30 23:03 | CT Preliminary Report ---
Exam: CT ABDOMEN/PELVIS W/ IMPRESSION: 1. Gallbladder filled with stones. No obvious cholecystitis. 2. Right lobe liver lesion measuring 2.5 cm which is not definitively characterized. This could be ca vernous hemangioma but other benign and malignant etiologies are also possible. Consider follow-up [facility] protocol MRI. 3. Appendix appears normal. 4. Collapsing 3 cm right ovarian cyst with a small amount of free fluid in the pelvis. 5. Moderate stool in the colon, right greater than left. [facility] SITE ID: [id number]
--- NOTE | 2017-11-30 23:04 | CT Report ---
EXAM: CT ABDOMEN AND PELVIS EXAM DATE: 11/30/2017 10:40 PM. CLINICAL HISTORY: RLQ pain. COMPARISONS: None. TECHNIQUE: Routine helical CT imaging was performed through the abdomen and pelvis. IV contrast: 100 ML ISOVUE 300. Enteric contrast: No. Reconstructions: Coronal and sagittal. In accordance with CT protocol optimization, one or more of the following dose reduction techniques w ere utilized for this exam: automated exposure control, adjustment of mA and/or KV based on patient s ize, or use of iterative reconstructive technique. FINDINGS: Lung Bases: Unremarkable. Liver: Right lobe liver lesion measuring 2.5 cm, series 3 image 27. Gallbladder/Bile Ducts: Gallbladder filled with stones. No obvious cholecystitis. Spleen: Normal. Pancreas: Normal. Adrenal Glands: Normal. Kidneys: Trace hydronephrosis on the right. Kidneys are otherwise unremarkable. No urolithiasis seen. Peritoneal Cavity/Bowel: Moderate stool in the colon. Trace free fluid in the pelvis. No free air. No bowel obstruction seen. No diverticulitis. No lymphadenopathy. Appendix appears normal. Pelvic Organs: Collapsing 3 cm right ovarian cyst. Visualized pelvic organs are otherwise unremarkabl e. Vasculature: No aneurysms or other significant abnormality. Bones: Left L5 pars defect. Other: None. IMPRESSION: 1. Gallbladder filled with stones. No obvious cholecystitis. 2. Right lobe liver lesion measuring 2.5 cm which is not definitively characterized. This could be ca vernous hemangioma but other benign and malignant etiologies are also possible. Consider follow-up [facility] protocol MRI. 3. Appendix appears normal. 4. Collapsing 3 cm right ovarian cyst with a small amount of free fluid in the pelvis. 5. Moderate stool in the colon, right greater than left. [facility] Referring Provider Line: [phone] SITE ID: [id number]
[2017-11-30 23:38] VITALS: BP 129/84
[2017-11-30] MEDS ORDERED: HYDROmorphone 1 MG/ML CARPUJECT IVP STA (23:39)
== END 2017-11-30 23:56 | disposition home or self-care (01) ==
LOC: ED 18:49
DX: N83.201 Unspecified ovarian cyst, right side (principal); K80.20 Calculus of gallbladder without cholecystitis without obstruction
CPT/HCPCS: 36415; 74177; 80053; 81003; 81025; 83690; 85025; 96374; 96375; 99283; 99284; A9270; J1170; Q9967; 81001; 87086